=== PATIENT | female | born 1975 | race Caucasian/White ===

== ENCOUNTER 2016-08-31 00:32 | Emergency (ER) | payer OTHER ==
[2016-08-31 00:40] VITALS: RESP 16
[2016-08-31] MEDS ORDERED: NS 1,000 ML IV ONE (01:07)
--- NOTE | 2016-08-31 01:07 | EDPHY ---
H & P Stated Complaint: fever 101F, started chemo 08/27 for breast ca, urinary frequency , recent URI HPI/ROS: HPI CHIEF COMPLAINT: fever HISTORY OF PRESENT ILLNESS: This patient very pleasant 41-year-old female, she presents emergency room as she developed a fever today. She states earlier in the morning she had chills and muscle aches, and developed a fever the day she states usually low-grade however it did go above 101 for few hours. She is undergoing chemotherapy she had her 1st dose of chemotherapy on she has breast cancer. Patient tells me that she called her oncologist down at [facility] and was recommended come the emergency room to be evaluated. Currently she tells me she feels tired. She did take Tylenol earlier however developed a fever over 101 after taking Tylenol. she does endorse a cough, and urinary frequency otherwise has no chest pain shortness of breath or abdominal pain Past Medical History: Asthma Past Surgical History: No significant surgical history except for recent lumpectomy, and tyree dissection Social History: denies use drugs alcohol tobacco products Family History: Noncontributory ROS REVIEW OF SYSTEMS: A comprehensive 10 point review of systems is otherwise negative aside from elements mentioned in the history of present illness. Exam Constitutional appears well nontoxic triage nursing summary reviewed, vital signs reviewed, awake/alert. Eyes normal conjunctivae and sclera, EOMI, PERRLA. HENT normal inspection, atraumatic, moist mucus membranes, no epistaxis, neck supple/ no meningismus, no raccoon eyes. Respiratory clear to auscultation bilaterally, normal breath sounds, no respiratory distress, no wheezing. Cardiovascular rate normal, regular rhythm, no murmur, no edema, distal pulses normal. Gastrointestinal soft, non-tender, no rebound, no guarding, normal bowel sounds, no distension, no pulsatile mass. Genitourinary no CVA tenderness. Musculoskeletal no midline vertebral tenderness, full range of motion, no calf swelling, no tenderness of extremities, no meningismus, good pulses, neurovascularly intact. Skin pink, warm, & dry, no rash, skin atraumatic. Neurologic awake, alert and oriented x 3, AAOx3, moves all 4 extremities equally, motor intact, sensory intact, CN II-XII intact, normal cerebellar, normal vision, normal speech. Psychiatric normal mood/affect. Heme/Lymph/Immune no lymphadenopathy. Differential Diagnosis: includes but is not limited to in a particular order, UTI, pneumonia, influenza, viral syndrome, bacteremia, dehydration, electrolyte abnormality Medical Decision Making: this patient had an IV established obtain blood work, patient had blood cultures, chest x-ray, urinalysis. Will check to see if she has a fever here. She will be gently hydrated normal saline. Re-evaluation: 0308: Re-evaluation at this time this patient is resting comfortably. No fever. Patient has been here for multiple hours and has not spiked a fever. Blood cultures have been pulled, lactic acid is less than 1, she does have a elevated leukocytosis however she does take Neulasta. Urinalysis has been reviewed shows no acute fracture, chest x-ray reviewed shows no acute infection , unlikely to be bacteremic. I will allow the patient to go home blood cultures are pending. Do recommend she follows up with her oncologist, have no evidence that she has an acute infection at this time. She understands to record her temperature she is spiking very high temperature does not feel well return immediately to the emergency room. Source: Patient - Personal History LMP (Females 10-55): Now Current Tetanus/Diphtheria Vaccine: Yes Current Tetanus Diphtheria and Acellular Pertussis (TDAP): Yes - Medical/Surgical History Hx Asthma: Yes Hx Chronic Respiratory Disease: No Hx Diabetes: No Hx Cardiac Disease: No Hx Renal Disease: No Hx Cirrhosis: No Hx Alcoholism: No Hx HIV/AIDS: No Hx Splenectomy or Spleen Trauma: No Other PMH: breast ca, asthma, - Social History Smoking Status: Never smoked Constitutional: Initial Vital Signs Temperature (C) 37.7 C 08/31/16 00:35 Heart Rate 114 H 08/31/16 00:35 Respiratory Rate 16 08/31/16 00:35 Blood Pressure 127/88 H 08/31/16 00:35 O2 Sat (%) 93 08/31/16 00:35 O2 Delivery Mode Room Air Allergies/Adverse Reactions: cat dander Allergy (Verified 08/31/16 00:42) dog dander Allergy (Verified 08/31/16 00:42) peanut Allergy (Verified 08/31/16 00:42) tree nut [Nuts] Allergy (Verified 08/31/16 00:42) Home Medications: Medication Instructions Recorded Advair 100/50 (*) 08/31/16 Ativan 08/31/16 CYTOXAN 08/31/16 DEXAMETHASONE 08/31/16 Neulasta 08/31/16 TaxoTERE 08/31/16 Zofran 08/31/16 Medical Decision Making - Data Points Laboratory Results: Laboratory Results 08/31/16 01:30 08/31/16 01:30 08/31/16 08/31/16 08/31/16 03:00 01:40 01:30 WBC RBC Hgb Hct MCV MCH MCHC RDW Plt Count MPV Neut % (Auto) Lymph % (Auto) [place] % (Auto) Eos % (Auto) Baso % (Auto) Nucleat RBC Rel Count Absolute Neuts (auto) Absolute Lymphs (auto) Absolute Monos (auto) Absolute Eos (auto) Absolute Basos (auto) Absolute Nucleated RBC Immature Gran % Seg Neutrophils % Band Neutrophils % Lymphocytes % Monocytes % Immature Gran # Absolute Seg Neuts Absolute Band Neuts Absolute Lymphocytes Absolute Monocytes Platelet Estimate APTT VBG Lactic Acid Sodium 139 mEq/L mEq/L (134-144) Potassium 3.8 mEq/L mEq/L (3.5-5.2) Chloride 106 mEq/L mEq/L (97-110) Carbon Dioxide 22 mEq/l mEq/l (22-31) Anion Gap 11 mEq/L mEq/L (8-16) BUN 12 mg/dL mg/dL (7-23) Creatinine 0.7 mg/dL mg/dL (0.6-1.0) Estimated GFR > 60 Glucose 98 mg/dL mg/dL (70-100) Calcium 8.8 mg/dL mg/dL (8.5-10.4) Urine Color PALE YELLOW Urine Appearance CLEAR Urine pH 7.0 (5.0-7.5) Ur Specific [place] 1.006 (1.002-1.030) Urine Protein NEGATIVE (NEGATIVE) Urine Ketones NEGATIVE (NEGATIVE) Urine Blood 1+ H (NEGATIVE) Urine Nitrate NEGATIVE (NEGATIVE) Urine Bilirubin NEGATIVE (NEGATIVE) Urine Urobilinogen NEGATIVE EU EU (0.2-1.0) Ur Leukocyte Esterase NEGATIVE (NEGATIVE) Urine RBC 1-3 /hpf /hpf (0-3) Urine WBC 1-3 /hpf /hpf (0-3) Ur Epithelial Cells TRACE /lpf /lpf (NONE-1+) Ur Culture Indicated? NOT INDICATED (NI) Urine Glucose NEGATIVE (NEGATIVE) Influenza Typ A,B (DFA) Pending 08/31/16 08/31/16 08/31/16 01:30 01:30 01:30 WBC 18.87 10^3/uL H 10^3/uL (3.80-9.50) RBC 4.56 10^6/uL 10^6/uL (4.18-5.33) Hgb 14.0 g/dL g/dL (12.6-16.3) Hct 40.6 % % (38.0-47.0) MCV 89.0 fL fL (81.5-99.8) MCH 30.7 pg pg (27.9-34.1) MCHC 34.5 g/dL g/dL (32.4-36.7) RDW 12.5 % % (11.5-15.2) Plt Count 161 10^3/uL 10^3/uL (150-400) MPV 11.6 fL fL (8.7-11.7) Neut % (Auto) Not Reported Lymph % (Auto) Not Reported [place] % (Auto) Not Reported Eos % (Auto) Not Reported Baso % (Auto) Not Reported Nucleat RBC Rel Count 0.0 % % (0.0-0.2) Absolute Neuts (auto) Not Reported Absolute Lymphs (auto) Not Reported Absolute Monos (auto) Not Reported Absolute Eos (auto) Not Reported Absolute Basos (auto) Not Reported Absolute Nucleated RBC 0.00 10^3/uL 10^3/uL (0-0.01) Immature Gran % Not Reported Seg Neutrophils % 76 % % Band Neutrophils % 13 % % Lymphocytes % 10 % % Monocytes % 1 % % Immature Gran # Not Reported Absolute Seg Neuts 14.34 10^/uL H 10^/uL (1.70-6.50) Absolute Band Neuts 2.45 10^3/uL H 10^3/uL (0.00-0.70) Absolute Lymphocytes 1.89 10^3/uL 10^3/uL (1.00-3.00) Absolute Monocytes 0.19 10^3/uL L 10^3/uL (0.30-0.80) Platelet Estimate ADEQUATE (ADEQ) APTT 27.0 SEC SEC (23.0-38.0) VBG Lactic Acid 1.0 mmol/L mmol/L (0.7-2.1) Sodium Potassium Chloride Carbon Dioxide Anion Gap BUN Creatinine Estimated GFR Glucose Calcium Urine Color Urine Appearance Urine pH Ur Specific [place] Urine Protein Urine Ketones Urine Blood Urine Nitrate Urine Bilirubin Urine Urobilinogen Ur Leukocyte Esterase Urine RBC Urine WBC Ur Epithelial Cells Ur Culture Indicated? Urine Glucose Influenza Typ A,B (DFA) Medications Given: Discontinued Medications Sodium Chloride (Ns) 1,000 mls @ 0 mls/hr IV ONCE ONE PRN Reason: Wide Open Stop: 08/31/16 01:08 Last Admin: 08/31/16 01:40 Dose: 1,000 mls Departure - Departure Disposition: Home, Routine, Self-Care Clinical Impression: Breast cancer Qualifiers: Breast location: unspecified site of breast Patient sex: female Laterality: left Qualified Code(s): C50.912 - Malignant neoplasm of unspecified site of left female breast Condition: Good Instructions: Fever in Adults (ED) Additional Instructions: 1. Return immediately if he develops a high fever. Return to the emergency review do not feel well. 2.Please also follow up with your oncologist. 3. we have pulled blood cultures please call in 24 hours to see if they grown any bacteria. Referrals: Patient,NotPresent [Unknown] - As per Instructions
[2016-08-31 01:14] VITALS: TEMP 99.7
[2016-08-31 01:41] LABS: ADD DIFF? YES; ADD MORPH? NO; ATYPICAL LYMPHOCYTE FLAG 0 (0-99); FRAGMENT RBC FLAG 0 (0-99); HEMATOCRIT 40.6 % (38.0-47.0); LIPEMIA HEMOLYSIS FLAG 90 (0-99); MEAN CELL HEMOGLOBIN 30.7 pg (27.9-34.1); MEAN CELL HEMOGLOBIN CONCENTR. 34.5 g/dL (32.4-36.7); MEAN PLATELET VOLUME 11.6 fL (8.7-11.7); PLATELET CLUMPS FLAG 0 (0-99); PLATELET COUNT 161 10^3/uL (150-400); RED BLOOD CELL COUNT 4.56 10^6/uL (4.18-5.33); RED CELL DISTRIBUTION WIDTH 12.5 % (11.5-15.2)
[2016-08-31 01:42] LABS: ADD SCAN? NO; LEFT SHIFT FLG 170 (0-99)
[2016-08-31 01:53] LABS: ANION GAP 11 mEq/L (8-16); CALCIUM 8.8 mg/dL (8.5-10.4); CARBON DIOXIDE 22 mEq/l (22-31); CHLORIDE 106 mEq/L (97-110); CREATININE 0.7 mg/dL (0.6-1.0); GLOMERULAR FILTRATION RATE > 60; GLUCOSE 98 mg/dL (70-100); POTASSIUM 3.8 mEq/L (3.5-5.2); SODIUM 139 mEq/L (134-144)
[2016-08-31 02:12] LABS: COLOR PALE YELLOW; LEUKOCYTE ESTERASE,URINE NEGATIVE (NEGATIVE); NITRITE,URINE NEGATIVE (NEGATIVE)
[2016-08-31 02:56] LABS: PLATELET ESTIMATE ADEQUATE (ADEQ)
[2016-08-31 03:27] VITALS: BP 120/85; PULSE 93; O2SAT 96
== END 2016-08-31 03:26 | disposition home or self-care (01) ==
DX: C50.912 Malignant neoplasm of unspecified site of left female breast (principal); J45.909 Unspecified asthma, uncomplicated; Z85.3 Personal history of malignant neoplasm of breast; Z87.891 Personal history of nicotine dependence